=== PATIENT | female | born 1975 | race Caucasian/White ===

== ENCOUNTER 2018-05-10 08:01 | Day surgery (SDC) | payer OTHER ==
[2018-05-09 15:42] VITALS: BMI 18.3
[2018-05-10] MEDS ORDERED: Oxymetazoline HCl 0.05% ( 15 ML ) ONE ×2 (09:35→09:55)
[2018-05-10] MEDS ORDERED: Lidocaine 1% w/Epinephrine 1:100K 30 ML VIAL ONE (09:55)
[2018-05-10] MEDS ORDERED: Bacitracin Zinc Ointment 30 gm TUBE ONE (09:55)
[2018-05-10] MEDS ORDERED: Fentanyl 100 MCG/2 ML VIAL ONE (10:21)
[2018-05-10] MEDS ORDERED: Dexamethasone 20 MG/5 ML VIAL ONE (17:40)
[2018-05-10] MEDS ORDERED: Ondansetron HCl/PF 4 MG/2 ML Vial ONE (17:40)
[2018-05-10] MEDS ORDERED: PHENYLEPHRINE-NS 100 MCG/ML 10 ML SYRINGE ONE (17:40)
[2018-05-10] MEDS ORDERED: Lidocaine 1% PF 5 ML VIAL ONE (17:40)
[2018-05-10] MEDS ORDERED: Succinylcholine Chloride 20 MG/ML 10 ml SYRINGE FS ONE (17:40)
[2018-05-10] MEDS ORDERED: PROPOFOL 200 MG/20 ML VIAL ONE (17:40)
--- NOTE | 2018-05-11 13:17 | OP ---
DATE OF PROCEDURE: 05/10/2018 PREOPERATIVE DIAGNOSES: 1. Chronic rhinosinusitis. 2. Nasal septal deviation. 3. Bilateral inferior turbinate hypertrophy. 4. Nasal obstruction. POSTOPERATIVE DIAGNOSES: 1. Chronic rhinosinusitis. 2. Nasal septal deviation. 3. Bilateral inferior turbinate hypertrophy. 4. Nasal obstruction. PROCEDURES: 1. Bilateral endoscopic sinus surgery, total ethmoidectomies. 2. Bilateral endoscopic sinus surgery, maxillary antrostomies. 3. Bilateral endoscopic sinus surgery, frontal sinusotomies. 4. Nasal septoplasty. 5. Bilateral inferior turbinate submucosal resection. SURGEON: Bernard Rees M.D. ESTIMATED BLOOD LOSS: 20 mL. COMPLICATIONS: None. ANESTHESIA: GETA. PROCEDURE IN DETAIL: Patient was taken to the operating room and placed supine on the table. Genera l endotracheal anesthesia was obtained by the Anesthesia staff. Tube was secured in the left lower li p. Patient was then placed in the beach chair position, and Afrin pledgets were placed in the nasal cavity. Injections of 1% lidocaine with 1:100,000 epinephrine were made into the nasal septum as wel l as the inferior turbinates. Patient was then prepped and draped in standard surgical fashion for n verónica surgery. Following this, the Afrin pledgets were removed. A [place] incision was made on the l eft nasal septum. Submucoperichondrial dissection was performed. The deviated portions of the septu m included portions of the cartilage and the bony septum. These isolated areas were removed using th ree cutting rongeurs. There was noted to be a large dorsal and caudal strut, left intact for support of the nose. The mucoperichondrial flaps were then reapproximated using a 4-0 gut stitch. Any strai ght pieces of cartilage were crushed prior to this and placed between the mucoperichondrial flaps. Fo llowing this, the inferior turbinates were then punctured with a submucosal coblation wand, and submu cosal coblations were performed of multiple areas of the inferior portion of the anterior inferior tu rbinate. Please note that the submucosal microdebrider was used to submucosally resect the anterior and inferior portions of the inferior turbinates bilaterally. Following this, the 0 degree scope was advanced in the middle meatus and middle turbinates were gently medialized using a [place] elevator. The uncinate process was then identified and was anteriorly fractured using the ball-ended probe bila terally. Following this, the upbiting [place] forceps and microdebrider were used to remove the un cinate bilaterally. Following this, the natural maxillary sinus ostia was identified with the ball-e nded probe and was gently widened bilaterally using the 0 degree microdebrider and straight [place] forceps. Following this, the ethmoidal bulla was identified and was punctured on its medial and inf erior aspect and was removed using the straight microdebrider. Following this, the grand lamella was identified and was then punctured into the posterior ethmoidal cells using the 0 degree microdebride r. Working from posterior to anterior, the ethmoidal cells were opened in a mucosal-sparing techniqu e. Following this, the 45-degree endoscope and the curved microdebrider blade was used to further op en the frontal recess cells and identify and widen the frontal sinus ostia bilaterally. Following th is, the nasal cavity was irrigated. MeroPacks were placed within the middle meatus. [place] splints w ere placed and secured. The patient tolerated the procedure well.
== END 2018-05-10 14:00 | disposition home or self-care (01) ==
LOC: SDC 08:01
PROVIDERS: ATTEND Otolaryngology Plastic Surgery within the Head & Neck
PROC: 09BM8ZZ Excision of Nasal Septum, Via Natural or Artificial Opening Endoscopic (ICD-10-PCS; principal; 2018-05-10)
PROC: 09TU8ZZ Resection of Right Ethmoid Sinus, Via Natural or Artificial Opening Endoscopic (ICD-10-PCS; principal; 2018-05-10)
PROC: 09TV8ZZ Resection of Left Ethmoid Sinus, Via Natural or Artificial Opening Endoscopic (ICD-10-PCS; principal; 2018-05-10)
DX: J32.8 Other chronic sinusitis (principal); J34.2 Deviated nasal septum; J34.3 Hypertrophy of nasal turbinates
CPT/HCPCS: 36415; 85014; J1100; J2001; J2405; J2704; J3010